=== PATIENT | male | born 1970 | race Caucasian/White ===

== ENCOUNTER → 2021-02-21 16:37 | Outpatient (CLI) | payer OTHER, SELFPAY ==
[2021-02-21] MEDS: COVID-19 VACC #1, MRNA(MOD) 100 MCG/0.5 ML VIAL IM (16:41)
== END ==
PROVIDERS: Visit Provider Internal Medicine
DX: Z23 Encounter for immunization (principal)
CPT/HCPCS: 0011A; 91301

== ENCOUNTER → 2021-03-21 11:10 | Outpatient (CLI) | payer OTHER, SELFPAY ==
[2021-03-21] MEDS: COVID-19 VACC #2, MRNA(MOD) 100 MCG/0.5 ML VIAL IM (11:17)
== END ==
PROVIDERS: Visit Provider Internal Medicine
DX: Z23 Encounter for immunization (principal)
CPT/HCPCS: 0012A; 91301

== ENCOUNTER → 2023-03-20 08:16 | Outpatient (CLI) | payer OTHER, SELFPAY ==
[2023-03-20 10:16] LABS: Add Manual Diff / Slide Review NO; Basophils Absolute Auto 100 /uL (0-100); Basophils Percent Auto 1.1 % (0-2); Eosinophils Absolute Auto 300 /uL (0-450); Eosinophils Percent Auto 5.3 % (2-4); Hematocrit 45.1 % (41-53); Hemoglobin 15.5 g/dL (13.5-17.5); Lymphocytes Absolute Auto 2100 /uL (1100-4500); Lymphocytes Percent Auto 41.3 % (25-40); Mean Corpuscular HGB Conc 34.5 % (30-36); Mean Corpuscular Hemoglobin 33.5 PG (26-34); Mean Corpuscular Volume 97.2 fL (80-100); Monocytes Absolute Auto 400 /uL (0-900); Monocytes Percent Auto 8.7 % (3-14); Neutrophils Absolute Auto 2200 /uL (1500-7000); Neutrophils Percent Auto 43.6 % (50-75); Platelet Count 333 X10^3/uL (150-400); Red Blood Cell Count 4.64 X10^6/uL (4.5-5.9); Red Cell Distribution Width 12.5 % (11.6-14.8); White Blood Cell Count 5.1 X10^3/uL (4.5-11.0)
[2023-03-20 10:19] LABS: Alanine Aminotransferase 19 IU/L (<50); Albumin 4.5 g/dL (3.5-5.0); Albumin Globulin Ratio 1.7 (1.0-2.8); Alkaline Phosphatase 81 U/L (38-126); Aspartate Aminotransferase 24 IU/L (17-59); BUN Creatinine Ratio 21.4 (6-22); Bilirubin Total 0.6 mg/dL (0.2-1.3); Blood Urea Nitrogen 21 mg/dL (9-20); C-Reactive Protein Quant < 0.5 mg/dL (<1.0); Calcium 9.3 mg/dL (8.4-10.2); Carbon Dioxide 26 mmol/L (22-32); Chloride 104 mmol/L (98-107); Cholesterol 213 mg/dL (140-199); Estimated Glomerular Filt Rate > 60 mL/min (>60); Globulin 2.7 g/dL (1.7-4.1); Glucose 94 mg/dL (70-100); HDL Cholesterol 65 mg/dL (40-60); HEMOLYSIS < 15 (0-50); LDL Cholesterol Calculated 138 mg/dL (<100); Potassium 4.3 mmol/L (3.4-5.1); Sodium 137 mmol/L (137-145); Total Protein 7.2 g/dL (6.3-8.2); Triglycerides 50 mg/dL (35-150)
[2023-03-20 10:53] LABS: Erythrocyte Sedimentation Rate 1 MM/HR (0-15)
== END ==
PROVIDERS: PCP Internal Medicine; Referring Provider Internal Medicine; Visit Provider Internal Medicine
DX: F39 Unspecified mood [affective] disorder (principal); F90.8 Attention-deficit hyperactivity disorder, other type; R59.1 Generalized enlarged lymph nodes
CPT/HCPCS: 36415; 80053; 80061; 85025; 85651; 86140

== ENCOUNTER → 2023-03-25 11:34 | Outpatient (CLI) | payer OTHER, SELFPAY ==
--- NOTE | 2023-03-25 11:34 | DI.CT.S_ITS ---
PROCEDURE: CT HEAD/BRAIN WO/W CON INDICATIONS: headache TECHNIQUE: 4.5 mm thick angled axial sections acquired from the foramen magnum to the vertex before and after the administration of intravenous contrast, with coronal and sagittal reformats. For radiation dose reduction, the following was used: automated exposure control, adjustment of mA and/or kV according to patient size. COMPARISON: None. FINDINGS: Image quality: Excellent. CSF Spaces: Basal cisterns are patent. No extra-axial fluid collections. Ventricles are normal in size and shape. Brain: No midline shift. No intracranial bleeds or masses. No abnormal intracranial enhancement. Patton-white interface appears normal. The cerebellar tonsils are not abnormally low lying. Skull and face: Calvarium and visualized facial bones appear intact, without suspicious lesions. Sinuses: Visualized sinuses and mastoids are clear. IMPRESSION: Normal head CT for age, without masses or abnormal enhancement seen to the limits of CT. A cause of headache is not identified. Dictated by: Riley Koch M.D. on 03/25/2023 at 14:10 Approved by: Riley Koch M.D. on 03/25/2023 at 14:11
[2023-03-25 15:05] LABS: Protein (Total) Urine Random < 5 mg/dL (0-12)
[2023-03-30 15:12] LABS: M-Spike % Not Observed % (Not Observed); Urine Total Protein 4.3 mg/dL (Not Estab.)
== END ==
PROVIDERS: PCP Internal Medicine; Referring Provider Student in an Organized Health Care Education/Training Program; Visit Provider Student in an Organized Health Care Education/Training Program
DX: R51.9 Headache, unspecified (principal)
CPT/HCPCS: 70470; 84156; 84166

== ENCOUNTER 2023-05-16 08:47 | Emergency (ER) | payer OTHER, SELFPAY ==
[2023-05-16 08:49] VITALS: BP 160/72; PULSE 72; RESP 18; TEMP 36.4; O2SAT 100; BMI 24.0
--- NOTE | 2023-05-16 08:56 | ED_ITS ---
HPI - General Adult General Chief complaint: Headache Stated complaint: Migraine Time Seen by Provider: 05/16/23 08:52 Source: patient Mode of arrival: EMS Limitations: no limitations History of Present Illness HPI narrative: Patient is a 53-year-old male. Has been diagnosed with migraines however this is a fairly new diagnosis. He has seen his primary doctor about these headaches. He also has had a CT scan of his head. He states that normally his headaches are controlled with medications at home. He states he has not seen a headache specialist. There was discussion with his primary doctor about doing s o but he wanted to see whether or not changing some of his diet would help the headaches. They have been progressively worsening. He is here today for approximately 3 days of headache. He has had this type of headache in the past. It feels like 1 of his prior migraines. He has taken his home medication without any improvement of symptoms. No fevers. Is having quite a bit of nausea. He did receive 4 mg of Zofran and 12.5 mg of Phenergan by EMS prior to arrival. Related Data Previous Rx's Medication Instructions Recorded lorazepam 0.5 mg tablet 0.5 mg PO BID PRN anxiety #45 tabs 11/24/22 venlafaxine 150 mg 300 mg PO QDAY #180 caps 03/19/23 capsule,extended release 24 hr (Effexor XR) sumatriptan succinate 50 mg tablet See Rx Instructions PO .COMPLEX 03/23/23 #10 tabs Allergies Allergy/AdvReac Type Severity Reaction Status Date / Time No Known Drug Allergies Allergy Verified 05/16/23 09:21 Review of Systems Constitutional Constitutional: Reports system reviewed and no additional complaints, except as documented Cardiovascular Cardiovascular: Reports system reviewed and no additional complaints, except as documented Respiratory Respiratory: Reports system reviewed and no additional complaints, except as documented Gastrointestinal Gastrointestinal: Reports system reviewed and no additional complaints, except as documented Neurologic Neurologic: Reports system reviewed and no additional complaints, except as documented Hematologic/Lymphatic On Anticoagulants: No Patient History Medical History ADHD, adult residual type Depression Mood disorder Social anxiety disorder Surgical History Anesthesia History of appendectomy History of shoulder surgery Family History Father Prediabetes Hypertension Mother Mental health problem Brother Cirrhosis Grandfather Stroke Grandmother Diabetes mellitus Social History Smoking Status: Never smoker Smoking Status: Never smoker Exam Initial Vital Signs Initial Vital Signs: Vital Signs Temperature 97.5 F L 05/16/23 08:49 Pulse Rate 72 05/16/23 08:49 Respiratory Rate 18 05/16/23 08:49 Blood Pressure 160/72 H 05/16/23 08:49 Pulse Oximetry 100 05/16/23 08:49 Oxygen Delivery Method Room Air 05/16/23 08:49 Const General: cooperative and comfortable HENMT Head: normal to inspection and normocephalic Neck Lymphatic: lymphadenopathy (One freely movable subcentimeter submandibular lymph node on the right) Chest Chest: No crepitus and No tenderness Resp Effort & Inspection: normal respiratory effort Auscultation: clear to auscultation bilaterally Cardio Rate: regular rate Rhythm: regular rhythm Skin General: no rashes or lesions noted Neuro General: patient alert, patient awake, patient oriented x3 and moves all extremities Cognition: normal cognition Speech: speech normal Extrem General: capillary refill normal Course Orders Ordered: Discontinued Medications Diphenhydramine HCl (Diphenhydramine 50 Mg/Ml Vial) 25 mg IV NOW ONE Stop: 05/16/23 08:53 Last Admin: 05/16/23 09:07 Dose: 25 mg Documented By: SHAKA Sodium Chloride (Normal Saline 0.9%) 1,000 mls @ 1,000 mls/hr IV BOLUS ONE Stop: 05/16/23 09:51 Last Admin: 05/16/23 09:07 Dose: 1,000 mls/hr Documented By: SHAKA Ketorolac Tromethamine (Ketorolac 30 Mg/Ml Vial) 30 mg IV NOW ONE Stop: 05/16/23 08:53 Last Admin: 05/16/23 09:07 Dose: 30 mg Documented By: SHAKA Metoclopramide HCl (Metoclopramide 10 Mg/2 Ml Inj) 10 mg IV NOW ONE Stop: 05/16/23 08:53 Last Admin: 05/16/23 09:07 Dose: 10 mg Documented By: SHAKA Vital Signs Vital signs: Vital Signs - 8 hr 05/16/23 08:49 Temperature 97.5 F L Pulse Rate 72 Respiratory Rate 18 Blood Pressure 160/72 H Pulse Oximetry 100 Oxygen Delivery Method Room Air Medical Decision Making MDM Narrative Medical decision making narrative: Patient is here with 1 of his typical migraine headaches. He reports improvement of symptoms after medications provided here in the ER. We will hold on further radiologic studies for now. He had had a head CT in the past. Given his presentation I have low suspicion for meningitis or subarachnoid hemorrhage or other intracranial acute pathology. I advised the patient that he should talk with his primary doctor about a referral to see a headache specialist as it seems his headaches have been worsening over the past couple months. He will continue to take all of his medications as directed. He was given return preca utions. He expressed understanding and agreement with plan. Discharge Plan Departure Patient Disposition: Home Clinical Impression: Headache Instructions: DI for Migraine Activity Restrictions/Additional Instructions: I do recommend that you continue to take all of your medications as directed. Be sure that you are increasing your fluid intake. I would recommend that you contact your primary doctor to discuss further evaluation to include a referral to see a headache specialist. Return to the emergency department for new or worsening symptoms. Prescriptions: No Action venlafaxine [Effexor XR] 150 mg capsule,extended release 24hr 300 mg PO QDAY Qty: 180 3RF Rx Instructions: Take 2 capsules by mouth daily sumatriptan succinate 50 mg tablet See Rx Instructions PO .COMPLEX Qty: 10 0RF Rx Instructions: take 1 tab at onset of headache; if no relief may repeat 1 tab after at least 2 hrs; max = 4 tabs/24 hr PO lorazepam 0.5 mg tablet 0.5 mg PO BID PRN (Reason: anxiety) Qty: 45 1RF Rx Instructions: must last 90 days Referrals: Oracio Grimaldo MD [Primary Care Provider] - Stand Alone Forms: Patient Portal/API
[2023-05-16 09:00] VITALS: BP 140/69; PULSE 64; RESP 22; O2SAT 100
[2023-05-16] MEDS: KETOROLAC 30 MG/ML VIAL IV (09:07)
[2023-05-16] MEDS: SODIUM CHLORIDE 0.9% 1,000 ML 1000 ML IV (09:07)
[2023-05-16] MEDS: diphenhydrAMINE 50 MG/ML VIAL 25 MG IV (09:07)
[2023-05-16] MEDS: METOCLOPRAMIDE 10 MG/2 ML INJ IV (09:07)
[2023-05-16 09:30] VITALS: BP 132/71; PULSE 61; RESP 14; O2SAT 99
[2023-05-16 10:00] VITALS: BP 127/65; PULSE 62; RESP 16; O2SAT 99
== END 2023-05-16 10:24 | disposition home or self-care (01) ==
PROVIDERS: Emergency Provider Emergency Medicine; PCP Internal Medicine
DX: G43.909 Migraine, unspecified, not intractable, without status migrainosus (principal)
CPT/HCPCS: 36415; 96361; 96374; 96375; 99284; J1200; J1885; J2765

== ENCOUNTER → 2024-01-13 09:20 | Outpatient (CLI) | payer BC, SELFPAY ==
--- NOTE | 2024-01-13 09:30 | DI.CT.S_ITS ---
PROCEDURE: CT SOFT TISSUE NECK WO CON INDICATIONS: right neck TECHNIQUE: Non-contrast 3.0 mm axial sections acquired from the sella to the aortic arch. Additional oblique axial 3.0 mm sections acquired through the pharynx. 3 mm thick coronal and sagittal reformats were generated. For radiation dose reduction, the following was used: automated exposure control. COMPARISON: None. FINDINGS: Image quality: Excellent. Lymph nodes: No enlarged lymph nodes seen throughout the neck. Vessels: Non-opacified vessels appear normal in caliber. Neck spaces: The oropharynx, nasopharynx, and pharynx demonstrate no mucosal lesions. The vocal cords, false vocal cords, pyriform sinuses, epiglottis, vallecula, and tongue base all appear normal. Extramucosal spaces appear unremarkable. A marker is seen placed over the sternocleidomastoid muscle. Glands: The parotid and submandibular glands appear normal, without stones. Thyroid gland is unremarkable . Miscellaneous: Visualized brain and orbits appear normal. Lung apices appear clear. Superficial soft tissues appear normal. Incidental note of buckle exostosis on the right. IMPRESSION: A marker is seen placed on the right neck adjacent to the sternocleidomastoid muscle. No masses or abnormalities are seen in this area. Evaluation is mildly limited without the use of intravenous contrast. Dictated by: Bhupendra Cross M.D. on 01/13/2024 at 12:16 Approved by: Bhupendra Cross M.D. on 01/13/2024 at 12:21
== END ==
PROVIDERS: PCP Internal Medicine; Referring Provider Internal Medicine; Visit Provider Internal Medicine
DX: R22.1 Localized swelling, mass and lump, neck (principal)
CPT/HCPCS: 70490

== ENCOUNTER → 2025-03-05 16:07 | Outpatient (CLI) | payer BC, SELFPAY ==
[2025-03-05 17:15] LABS: Alanine Aminotransferase 26 IU/L (<50); Albumin 4.6 g/dL (3.5-5.0); Albumin Globulin Ratio 1.8 (1.0-2.8); Alkaline Phosphatase 104 U/L (38-126); Aspartate Aminotransferase 33 IU/L (17-59); BUN Creatinine Ratio 32.3 (6-22); Bilirubin Total 0.2 mg/dL (0.2-1.3); Blood Urea Nitrogen 30 mg/dL (9-20); Calcium 9.3 mg/dL (8.4-10.2); Carbon Dioxide 25 mmol/L (22-32); Chloride 103 mmol/L (98-107); Estimated Glomerular Filt Rate > 60 mL/min (>60); Globulin 2.6 g/dL (1.7-4.1); Glucose 93 mg/dL (70-100); HEMOLYSIS < 15 (0-50); Sodium 137 mmol/L (137-145); Total Protein 7.2 g/dL (6.3-8.2)
[2025-03-05 17:46] LABS: TSH w/ Reflex to FT4 1.17 uIU/mL (0.47-4.68)
== END ==
PROVIDERS: PCP Internal Medicine; Referring Provider Internal Medicine; Visit Provider Internal Medicine
DX: E03.9 Hypothyroidism, unspecified (principal)
CPT/HCPCS: 36415; 80053; 84402; 84403; 84443

== ENCOUNTER → 2025-03-23 14:56 | Outpatient (CLI) | payer BC, SELFPAY ==
[2025-03-23 16:07] LABS: Testosterone 328 ng/dL (71.8-623)
== END ==
PROVIDERS: PCP Internal Medicine; Referring Provider Internal Medicine; Visit Provider Internal Medicine
DX: E29.1 Testicular hypofunction (principal)
CPT/HCPCS: 36415; 84403

== ENCOUNTER → 2025-04-20 08:29 | Outpatient (CLI) | payer BC, SELFPAY ==
[2025-04-28 21:36] LABS: Percent Free Testosterone 2.37 % (1.50-4.20); Testosterone Free 6.64 ng/dL (5.00-21.00)
== END ==
PROVIDERS: PCP Internal Medicine; Referring Provider Internal Medicine; Visit Provider Internal Medicine
DX: E29.1 Testicular hypofunction (principal)
CPT/HCPCS: 36415; 84402; 84403